=== PATIENT | female | born 1980 | race Two or more races ===

== ENCOUNTER 2025-01-14 13:44 | Outpatient (CLI) | payer OTHER | END 2025-01-14 13:54 | disposition home or self-care (01) | LOC: RAD 13:44 | PROVIDERS: ATTEND Orthopaedic Surgery | DX: M25.552 Pain in left hip (principal); M25.561 Pain in right knee ==

== ENCOUNTER 2025-04-14 08:33 | Outpatient (CLI) | payer OTHER | END 2025-04-14 08:34 | disposition home or self-care (01) | LOC: SONOGRAMA 08:33 | PROVIDERS: ATTEND Orthopaedic Surgery | DX: M25.552 Pain in left hip (principal); M70.62 Trochanteric bursitis, left hip ==